=== PATIENT | female | born 1970 | race Caucasian/White ===

== ENCOUNTER 2018-12-15 13:05 | Emergency (ER) | payer OTHER, SELFPAY ==
[2018-12-15 13:12] VITALS: BP 121/84; PULSE 67; RESP 14; TEMP 37.5; O2SAT 97
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
--- NOTE | 2018-12-15 13:26 | DI.RAD_ITS ---
SYMPTOM/DIAGNOSIS: FALL, LT RING PIP PAIN AND FLEXION LEFT HAND: Three views. No acute fracture, dislocation or soft tissue abnormality is identified. There is flexion of the DIP joint of the left ring finger. Ligamentous or tendon injury cannot be excluded. Please correlate with physical exam.
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
--- NOTE | 2018-12-15 14:16 | DI.VRAD_ITS ---
EXAM: XR Left Hand EXAM DATE/TIME: 12/15/2018 1:48 PM CLINICAL HISTORY: 48 years old, female; Signs and symptoms; Other: Fall, L ring pip pain and flexion TECHNIQUE: Imaging protocol: XR Left hand. Views: 3 or more views. COMPARISON: No relevant prior studies available. FINDINGS: The bony structures are in anatomic alignment. No fracture is present. No radiopaque foreign body is identified. The joint spaces are well maintained. IMPRESSION: No evidence of acute bony abnormality. Dictated and Authenticated by: Misha Foss MD. Ordering:CE Goss MD
[2018-12-15] MEDS: Tetanus & Diphtheria Tox,ADULT 0.5 ML VIAL IM (14:52)
== END 2018-12-15 15:25 | disposition home or self-care (01) ==
PROVIDERS: Emergency Provider Emergency Medicine
DX: M20.012 Mallet finger of left finger(s) (principal); R07.89 Other chest pain; V17.0XXA Pedal cycle driver injured in collision with fixed or stationary object in nontraffic accident, initial encounter
CPT/HCPCS: 90471; 99284; 71046; 73130